=== PATIENT | male | born 2000 | race Caucasian/White ===

== ENCOUNTER 2018-03-19 19:12 | Emergency (ER) | payer OTHER | END 2018-03-19 20:55 | disposition home or self-care (01) | LOC: M ED 19:12 | DX: J06.9 Acute upper respiratory infection, unspecified (principal) | CPT/HCPCS: 71046 ==

== ENCOUNTER 2018-09-03 23:46 | Emergency (ER) | payer OTHER ==
[~2018-09-03] VITALS: Ht 180.3 cm; Wt 65.9 kg
[~2018-09-03 23:46] MED LIST: FLON1SPR NARES; TESS100C PO
[2018-09-03 23:47] VITALS: BP 132/79
[2018-09-04] MEDS ORDERED: LIDOCAINE 2% MDV 20 ML VIAL SC ONE (01:15)
== END 2018-09-04 02:25 | disposition left against medical advice (07) ==
LOC: M ED 23:46
DX: S61.216A Laceration without foreign body of right little finger without damage to nail, initial encounter (principal); W26.0XXA Contact with knife, initial encounter; Y92.018 Other place in single-family (private) house as the place of occurrence of the external cause

== ENCOUNTER 2022-05-02 14:55 | Emergency (ER) | payer OTHER ==
[~2022-05-02] VITALS: Ht 180.3 cm; Wt 62.1 kg
[2022-05-02] MEDS ORDERED: AUGMENTIN 875 MG TAB PO ONE (17:40)
[2022-05-02] MEDS ORDERED: GABAPENTIN 300 MG CAP PO ONE (17:40)
[2022-05-02 17:48] VITALS: BP 120/76
== END 2022-05-02 18:05 | disposition home or self-care (01) ==
LOC: M ED 14:55
DX: K08.89 Other specified disorders of teeth and supporting structures (principal); R59.9 Enlarged lymph nodes, unspecified